=== PATIENT | male | born 1945 ===

== ENCOUNTER 2018-01-25 11:30 | Day surgery (SDC) | payer OTHER ==
[~2018-01-25 11:30] MED LIST: DILTIAZEM 24HR240 MG PO; FENOFIBRATE160 MG PO; MIRALAX510 GM PO; NEURONTIN300 MG PO; PRAVASTATIN SOD20 MG PO; RECTICARE30 GM TOP; ULTRACET PO
== END 2018-01-25 16:20 | disposition home or self-care (01) ==
LOC: AMB-ENDOS 11:30
DX: C20 Malignant neoplasm of rectum (principal)